=== PATIENT | female | born 1990 | race Caucasian/White ===

== ENCOUNTER 2022-06-26 14:25 | Emergency (ER) | payer OTHER, SELFPAY ==
[2022-06-26 14:38] VITALS: BP 139/82; PULSE 87; RESP 18; TEMP 36.6; O2SAT 97; BMI 34.5
[2022-06-26 15:01] LABS: Add Manual Diff / Slide Review NO; Basophils Absolute Auto 100 /uL (0-100); Basophils Percent Auto 0.8 % (0-2); Eosinophils Absolute Auto 100 /uL (0-450); Eosinophils Percent Auto 1.5 % (2-4); Hematocrit 39.4 % (36-46); Hemoglobin 14.1 g/dL (12.0-16.0); Lymphocytes Absolute Auto 1700 /uL (1100-4500); Lymphocytes Percent Auto 26.3 % (25-40); Mean Corpuscular HGB Conc 35.8 % (30-36); Mean Corpuscular Hemoglobin 31.2 PG (26-34); Mean Corpuscular Volume 87.1 fL (80-100); Monocytes Absolute Auto 400 /uL (0-900); Monocytes Percent Auto 5.7 % (3-14); Neutrophils Absolute Auto 4300 /uL (1500-7000); Neutrophils Percent Auto 65.7 % (50-75); Platelet Count 247 X10^3/uL (150-400); Red Blood Cell Count 4.52 X10^6/uL (4.0-5.2); Red Cell Distribution Width 12.3 % (11.6-14.8); White Blood Cell Count 6.5 X10^3/uL (4.5-11.0)
[2022-06-26 15:14] LABS: Alanine Aminotransferase 54 IU/L (<35); Albumin 4.5 g/dL (3.5-5.0); Albumin Globulin Ratio 1.2 (1.0-2.8); Alkaline Phosphatase 96 U/L (38-126); Aspartate Aminotransferase 33 IU/L (14-36); BUN Creatinine Ratio 15.6 (6-22); Bilirubin Total 0.8 mg/dL (0.2-1.3); Blood Urea Nitrogen 10 mg/dL (7-17); Calcium 9.2 mg/dL (8.4-10.2); Carbon Dioxide 27 mmol/L (22-32); Chloride 101 mmol/L (98-107); Estimated Glomerular Filt Rate > 60 mL/min (>60); Globulin 3.9 g/dL (1.7-4.1); Glucose 163 mg/dL (70-100); HEMOLYSIS < 15 (0-50); Lipase 77 U/L (23-300); Potassium 3.6 mmol/L (3.4-5.1); Sodium 136 mmol/L (137-145); Total Protein 8.4 g/dL (6.3-8.2)
--- NOTE | 2022-06-26 17:27 | DI.US.S_ITS ---
PROCEDURE: US ABDOMEN LIMITED INDICATIONS: PAIN TECHNIQUE: Real-time focused scanning was performed of the abdomen, with image documentation. COMPARISON: None. FINDINGS: Liver and gallbladder within normal limits. No biliary ductal dilatation. Visualized portions of the pancreas are within normal limits. IMPRESSION: No acute process. Dictated by: Heidi Marie M.D. on 06/26/2022 at 18:07 Approved by: Heidi Marie M.D. on 06/26/2022 at 18:08
[2022-06-26 18:41] VITALS: BP 122/76; PULSE 77; RESP 18; O2SAT 99
[2022-06-26 18:43] VITALS: PULSE 66; O2SAT 98
--- NOTE | 2022-06-26 18:52 | DI.CT.S_ITS ---
PROCEDURE: CT ABDOMEN PELVIS W CON INDICATIONS: RUQ pain TECHNIQUE: After the administration of intravenous contrast, axial sections acquired from the lung bases to the pubic symphysis. Coronal and sagittal reformats were performed. For radiation dose reduction, the following was used: automated exposure control, adjustment of mA and/or kV according to patient size. COMPARISON: None. FINDINGS: Image quality: Excellent. Lung bases: Unremarkable. Heart: No significant findings. ABDOMEN: Liver: Enlarged and demonstrates diffusely decreased density. Gallbladder: Within normal limits Biliary ducts: Unremarkable. Pancreas: Unremarkable. Spleen: Unremarkable. Adrenal Glands: Unremarkable. Kidneys and Ureters: Unremarkable. Stomach and Bowel: Stomach, small bowel loops, and colon are unremarkable. The tip of the appendix demonstrates mild surrounding fat stranding. Remainder of the appendix is within normal limits. Peritoneum: No abnormal intraperitoneal fluid. No free air. Ventral Wall: No hernias. Abdominal Nodes: No retroperitoneal or mesenteric adenopathy by size criteria. Vessels: Aorta and inferior vena cava are normal in size. PELVIS: Pelvic Organs: Unremarkable. Bladder: Unremarkable. Pelvic Nodes: No enlarged lymph nodes. Miscellaneous: No hernias are seen. Bones: Unremarkable. IMPRESSION: 1. Findings suggestive of evolving tip appendicitis. 2. Hepatic steatosis. Dictated by: Heidi Marie M.D. on 06/26/2022 at 19:10 Approved by: Heidi Marie M.D. on 06/26/2022 at 19:11
[2022-06-26 18:59] LABS: Appearance Urine UA CLEAR; Bilirubin Urine UA NEGATIVE (NEGATIVE); Color Urine UA YELLOW; Glucose Urine UA NEGATIVE (Negative); Ketones Urine UA NEGATIVE (NEGATIVE); Leukocyte Esterase Urine UA NEGATIVE (NEGATIVE); Nitrite Urine UA NEGATIVE (Negative); Occult Blood Urine UA TRACE-INTACT (Negative); Protein Urine UA NEGATIVE (Negative); Specific Gravity Urine UA 1.025 (1.000-1.035); Urobilinogen Urine UA 0.2 E.U./dL (0.2)
[2022-06-26 19:00] LABS: pH Urine UA 5.5 (4.5-8.0)
--- NOTE | 2022-06-26 19:04 | ED_ITS ---
HPI - Abdominal Pain <Ashley Jessica PA-C - Last Filed: 06/26/22 20:11> General Chief Complaint: Abdominal Pain Stated Complaint: poss galbladder rupture/nurse advice line said Time Seen by Provider: 06/26/22 14:52 Source: patient Mode of arrival: Wheelchair History of Present Illness HPI narrative: 32-year-old female with no reported past medical history presents to the ED with 1 week of right upper quadrant pain. Patient states that her pain started last week, was intermittent. Patient states that she woke up this morning with worsened right upper quadrant pain. Patient had 1 episode of vomiting earlier today. Patient denies fever, chills, chest pain, shortness of breath, dysuria, flank pain, lightheadedness, dizziness, syncope. Related Data Previous Rx's Medication Instructions Recorded ciprofloxacin HCl 500 mg tablet 500 mg PO BID 7 days #14 tabs 06/26/22 metronidazole 500 mg tablet 500 mg PO TID 7 days #21 tabs 06/26/22 Allergies Allergy/AdvReac Type Severity Reaction Status Date / Time Sulfa (Sulfonamide Allergy Intermediate Hives Verified 06/26/22 14:42 Antibiotics) Review of Systems <Ashley Jessica PA-C - Last Filed: 06/26/22 20:11> Review of Systems ROS Unobtainable: All systems reviewed & are unremarkable except as noted in HPI and below Constitutional Constitutional: Denies chills, Denies fatigue, Denies fever(s), Denies frequent falls, Denies lethargy and Denies weakness Eyes Eyes: Denies change in vision, Denies eye discharge, Denies irritation and Denies loss of vision ENT Ears, Nose, Mouth, and Throat: Denies change in voice, Denies dizziness, Denies neck pain, Denies sore throat and Denies throat swelling Cardiovascular Cardiovascular: Denies chest pain, Denies irregular heart rhythm, Denies lightheadedness, Denies palpitations, Denies dyspnea, Denies dyspnea on exertion and Denies orthopnea Respiratory Respiratory: Denies cough, Denies dyspnea, Denies dyspnea on exertion and Denies wheezing Gastrointestinal Gastrointestinal: Reports abdominal pain, Denies change in bowel habits, Denies diarrhea, Reports nausea and Reports vomiting Genitourinary Genitourinary: Denies hematuria, Denies flank pain, Denies urinary incontinence and Denies urinary urgency Musculoskeletal Musculoskeletal: Denies back pain, Denies muscle weakness, Denies neck pain, Denies numbness and Denies tingling Integumentary/Breasts Skin/Breast: Denies pruritus, Denies erythema, Denies rash and Denies wounds Neurologic Neurologic: Denies behavioral changes, Denies confusion, Denies dizziness, Denies frequent falls, Denies loss of vision, Denies numbness, Denies tingling and Denies weakness Psychiatric Psychiatric: Denies anxiety, Denies behavioral changes, Denies confusion, Denies depression, Denies homicidal ideation and Denies suicidal ideation Endocrine Endocrine: Denies fatigue, Denies flushing and Denies palpitations Hematologic/Lymphatic Hematologic/Lymphatic: Denies easy bruising Allergic/Immunologic Allergic/Immunologic: Denies urticaria, Denies throat swelling and Denies wheezing Patient History <Ashley Jessica PA-C - Last Filed: 06/26/22 20:11> Social History Smoking Status: Current some day smoker Smoking Status: Current some day smoker alcohol intake frequency: a few times a month Substance Use Type: does not use Exam <Ashley Jessica PA-C - Last Filed: 06/26/22 20:11> Narrative Exam Narrative: Const General:?cooperative, healthy appearing and comfortable [facility] Head:?normal to inspection Ears:?hearing grossly normal bilaterally Nose:?external nose normal Face and sinus:?normal facial exam and sinuses nontender Mouth:?oral mucosae normal Throat:?posterior oropharynx normal Eyes General:?appearance normal, both eyes and all related structures Neck Neck:?normal visual inspection and no lymphadenopathy noted Resp Effort & Inspection:?normal respiratory effort Auscultation:?clear to auscultation bilaterally Cardio Rate:?regular rate Rhythm:?regular rhythm GI Abdomen is soft, nondistended. Abdomen is exquisitely tender to palpation in the right upper quadrant. There is no CVA tenderness. Neuro General:?patient alert, patient awake and patient oriented x3 Initial Vital Signs Initial Vital Signs: Vital Signs Temperature 97.9 F 06/26/22 14:38 Pulse Rate 87 06/26/22 14:38 Respiratory Rate 18 06/26/22 14:38 Blood Pressure 139/82 06/26/22 14:38 Pulse Oximetry 97 06/26/22 14:38 Oxygen Delivery Method Room Air 05/08/23 14:38 <Jenelle Wick DO - Last Filed: 06/27/22 15:15> Initial Vital Signs Initial Vital Signs: Vital Signs Temperature 97.9 F 06/26/22 14:38 Pulse Rate 87 06/26/22 14:38 Respiratory Rate 18 06/26/22 14:38 Blood Pressure 139/82 06/26/22 14:38 Pulse Oximetry 97 06/26/22 14:38 Oxygen Delivery Method Room Air 06/26/22 14:38 Course <Ashley Jessica PA-C - Last Filed: 06/26/22 20:11> Orders Ordered: Discontinued Medications Ciprofloxacin (Ciprofloxacin 250 Mg Tablet) 500 mg PO NOW ONE Stop: 06/26/22 20:07 Last Admin: 06/26/22 20:10 Dose: 500 mg Documented By: JUVENAL Al Hydrox/Mg Hydrox/Simethicone 20 ml/ Lidocaine HCl 15 ml 0 ml PO NOW ONE Stop: 06/26/22 19:05 Last Admin: 06/26/22 19:14 Dose: 35 ml Documented By: JUVENAL Famotidine (Famotidine 20 Mg/2 Ml Vial) 20 mg IV NOW VICKI Last Admin: 06/26/22 19:17 Dose: 20 mg Documented By: JUVENAL Ketorolac Tromethamine (Ketorolac 30 Mg/Ml Vial) 15 mg IV NOW ONE Stop: 06/26/22 18:53 Last Admin: 06/26/22 19:16 Dose: 15 mg Documented By: JUVENAL Metronidazole (Metronidazole 500 Mg Tablet) 500 mg PO NOW ONE Stop: 06/26/22 20:07 Last Admin: 06/26/22 20:10 Dose: 500 mg Documented By: JUVENAL Ondansetron HCl (Ondansetron 4 Mg Odt) 4 mg PO NOW PRN PRN Reason: Nausea And Vomiting Ondansetron HCl (Ondansetron 4 Mg/2 Ml Inj) 4 mg IV NOW PRN PRN Reason: Nausea And Vomiting Vital Signs Vital signs: Vital Signs - 8 hr 06/26/22 14:38 06/26/22 18:41 06/26/22 18:43 Temperature 97.9 F Pulse Rate 87 77 66 Respiratory Rate 18 18 Blood Pressure 139/82 122/76 Pulse Oximetry 97 99 98 Oxygen Delivery Method Room Air Room Air 06/26/22 19:45 Temperature Pulse Rate Respiratory Rate 14 Blood Pressure Pulse Oximetry 98 Oxygen Delivery Method <Jenelle Wick DO - Last Filed: 06/27/22 15:15> Orders Ordered: Discontinued Medications Ciprofloxacin (Ciprofloxacin 250 Mg Tablet) 500 mg PO NOW ONE Stop: 06/26/22 20:07 Last Admin: 06/26/22 20:10 Dose: 500 mg Documented By: RL Al Hydrox/Mg Hydrox/Simethicone 20 ml/ Lidocaine HCl 15 ml 0 ml PO NOW ONE Stop: 06/26/22 19:05 Last Admin: 06/26/22 19:14 Dose: 35 ml Documented By: RL Famotidine (Famotidine 20 Mg/2 Ml Vial) 20 mg IV NOW VICKI Last Admin: 06/26/22 19:17 Dose: 20 mg Documented By: RL Ketorolac Tromethamine (Ketorolac 30 Mg/Ml Vial) 15 mg IV NOW ONE Stop: 06/26/22 18:53 Last Admin: 06/26/22 19:16 Dose: 15 mg Documented By: JUVENAL Metronidazole (Metronidazole 500 Mg Tablet) 500 mg PO NOW ONE Stop: 06/26/22 20:07 Last Admin: 06/26/22 20:10 Dose: 500 mg Documented By: JUVENAL Ondansetron HCl (Ondansetron 4 Mg Odt) 4 mg PO NOW PRN PRN Reason: Nausea And Vomiting Ondansetron HCl (Ondansetron 4 Mg/2 Ml Inj) 4 mg IV NOW PRN PRN Reason: Nausea And Vomiting Vital Signs Vital signs: Vital Signs - 8 hr 06/26/22 14:38 06/26/22 18:41 06/26/22 18:43 Temperature 97.9 F Pulse Rate 87 77 66 Respiratory Rate 18 18 Blood Pressure 139/82 122/76 Pulse Oximetry 97 99 98 Oxygen Delivery Method Room Air Room Air 06/26/22 19:45 Temperature Pulse Rate Respiratory Rate 14 Blood Pressure Pulse Oximetry 98 Oxygen Delivery Method MDM - Abdominal Pain <Ashley Jessica PA-C - Last Filed: 06/26/22 20:11> Lab Data 06/26/22 14:52 06/26/22 14:52 Labs: Lab Results 06/26/22 06/26/22 06/26/22 Range/Units 14:52 14:52 16:28 WBC 6.5 (4.5-11.0) X10^3/uL RBC 4.52 (4.0-5.2) X10^6/uL Hgb 14.1 (12.0-16.0) g/dL Hct 39.4 (36-46) % MCV 87.1 (80-100) fL MCH 31.2 (26-34) PG MCHC 35.8 (30-36) % RDW 12.3 (11.6-14.8) % Plt Count 247 (150-400) X10^3/uL Neut % (Auto) 65.7 (50-75) % Lymph % (Auto) 26.3 (25-40) % [place] % (Auto) 5.7 (3-14) % Eos % (Auto) 1.5 L (2-4) % Baso % (Auto) 0.8 (0-2) % Neut # (Auto) 4300 (9748-8098) /uL Lymph # (Auto) 1700 (4827-4593) /uL [place] # (Auto) 400 (0-900) /uL Eos # (Auto) 100 (0-450) /uL Baso # (Auto) 100 (0-100) /uL Sodium 136 L (137-145) mmol/L Potassium 3.6 (3.4-5.1) mmol/L Chloride 101 (98-107) mmol/L Carbon Dioxide 27 (22-32) mmol/L BUN 10 (7-17) mg/dL Creatinine 0.64 (0.52-1.04) mg/dL Estimated GFR > 60 (>60) mL/min BUN/Creatinine Ratio 15.6 (6-22) Glucose 163 H (70-100) mg/dL Calcium 9.2 (8.4-10.2) mg/dL Total Bilirubin 0.8 (0.2-1.3) mg/dL AST 33 (14-36) IU/L ALT 54 H (<35) IU/L Alkaline Phosphatase 96 (38-126) U/L Total Protein 8.4 H (6.3-8.2) g/dL Albumin 4.5 (3.5-5.0) g/dL Globulin 3.9 (1.7-4.1) g/dL Albumin/Globulin Ratio 1.2 (1.0-2.8) Lipase 77 (23-300) U/L Urine Color Yellow Urine Appearance Clear Urine pH 5.5 (4.5-8.0) Ur Specific Pilot 1.025 (1.000-1.035) Urine Protein Negative (Negative) Urine Glucose (UA) Negative (Negative) g/dL Urine Ketones Negative (NEGATIVE) Urine Occult Blood Trace-intact (Negative) Urine Nitrate Negative (Negative) Urine Bilirubin Negative (NEGATIVE) Urine Urobilinogen 0.2 (0.2) E.U./dL Ur Leukocyte Esterase Negative (NEGATIVE) Urine RBC 1-5/hpf (0-5/HPF) Urine WBC 0-1/hpf (0-5/HPF) Ur Squamous Epith Cells 10-30 /hpf H (0-5/HPF) Amorphous Sediment 1+ Urine Bacteria Occasional (0-1) (None) Ur Culture Indicated? Specimen cultured Point of care testing: Point of Care Testing Test Results Negative MDM Narrative Medical decision making narrative: 32-year-old female with no reported past medical history presents to the ED with 1 week of right upper quadrant pain. Concern for gallbladder disease versus pancreatitis versus PUD versus gastritis versus GERD versus other intra- abdominal pathology versus other. Will obtain labs, lipase, UA, urine hCG, ultrasound right upper quadrant. Labs, UA, urine hCG with no acute findings. Ultrasound RUQ without acute findings. Patient reassessed, abdomen is still very tender in the right upper quadrant, will obtain CT abdomen pelvis. CT abdomen pelvis shows evolving appendicitis of the tip of the appendix. Dr. Garcia from surgery was consulted, she advises discharge home with p.o. antibiotics. Discussed findings with patient. Patient agrees to return to the ED if her symptoms worsen. Antibiotics prescribed. First dose of antibiotics given in the ED. <Jenelle Wick, DO - Last Filed: 06/27/22 15:15> Lab Data Labs: Lab Results 06/26/22 06/26/22 06/26/22 Range/Units 14:52 14:52 16:28 WBC 6.5 (4.5-11.0) X10^3/uL RBC 4.52 (4.0-5.2) X10^6/uL Hgb 14.1 (12.0-16.0) g/dL Hct 39.4 (36-46) % MCV 87.1 (80-100) fL MCH 31.2 (26-34) PG MCHC 35.8 (30-36) % RDW 12.3 (11.6-14.8) % Plt Count 247 (150-400) X10^3/uL Neut % (Auto) 65.7 (50-75) % Lymph % (Auto) 26.3 (25-40) % [place] % (Auto) 5.7 (3-14) % Eos % (Auto) 1.5 L (2-4) % Baso % (Auto) 0.8 (0-2) % Neut # (Auto) 4300 (1831-0631) /uL Lymph # (Auto) 1700 (8412-8574) /uL [place] # (Auto) 400 (0-900) /uL Eos # (Auto) 100 (0-450) /uL Baso # (Auto) 100 (0-100) /uL Sodium 136 L (137-145) mmol/L Potassium 3.6 (3.4-5.1) mmol/L Chloride 101 (98-107) mmol/L Carbon Dioxide 27 (22-32) mmol/L BUN 10 (7-17) mg/dL Creatinine 0.64 (0.52-1.04) mg/dL Estimated GFR > 60 (>60) mL/min BUN/Creatinine Ratio 15.6 (6-22) Glucose 163 H (70-100) mg/dL Calcium 9.2 (8.4-10.2) mg/dL Total Bilirubin 0.8 (0.2-1.3) mg/dL AST 33 (14-36) IU/L ALT 54 H (<35) IU/L Alkaline Phosphatase 96 (38-126) U/L Total Protein 8.4 H (6.3-8.2) g/dL Albumin 4.5 (3.5-5.0) g/dL Globulin 3.9 (1.7-4.1) g/dL Albumin/Globulin Ratio 1.2 (1.0-2.8) Lipase 77 (23-300) U/L Urine Color Yellow Urine Appearance Clear Urine pH 5.5 (4.5-8.0) Ur Specific [place] 1.025 (1.000-1.035) Urine Protein Negative (Negative) Urine Glucose (UA) Negative (Negative) g/dL Urine Ketones Negative (NEGATIVE) Urine Occult Blood Trace-intact (Negative) Urine Nitrate Negative (Negative) Urine Bilirubin Negative (NEGATIVE) Urine Urobilinogen 0.2 (0.2) E.U./dL Ur Leukocyte Esterase Negative (NEGATIVE) Urine RBC 1-5/hpf (0-5/HPF) Urine WBC 0-1/hpf (0-5/HPF) Ur Squamous Epith Cells 10-30 /hpf H (0-5/HPF) Amorphous Sediment 1+ Urine Bacteria Occasional (0-1) (None) Ur Culture Indicated? Specimen cultured Point of care testing: Point of Care Testing Test Results Negative Discharge Plan Departure Patient Disposition: Home Clinical Impression: Acute appendicitis Instructions: DI for Appendicitis -- Adult Activity Restrictions/Additional Instructions: You were evaluated in the ED today for abdominal pain. Your labs, urine, ultrasound were normal. Your CT abdomen pelvis did show developing appendicitis. Dr. Garcia from surgery was consulted, she recommends discharge home with oral antibiotics. Please monitor your symptoms and return to the ED if your symptoms worsen, you develop fevers and chills, you are persistently vomiting. Please follow-up with your PCP as soon as possible. Prescriptions: New ciprofloxacin HCl 500 mg tablet 500 mg PO BID 7 Days Qty: 14 0RF metronidazole 500 mg tablet 500 mg PO TID 7 Days Qty: 21 0RF Referrals: Raheel Muñiz DC [Primary Care Provider] - Stand Alone Forms: Patient Portal/API <Jenelle Wick DO - Last Filed: 06/27/22 15:15> Cosign ED Attending Cosignature Attestation: I was immediately available in the department for consultation. Documentation has been reviewed.
[2022-06-26 19:06] LABS: RBC Urine 1-5/HPF (0-5/HPF); WBC Urine 0-1/HPF (0-5/HPF)
[2022-06-26 19:07] LABS: Amorphous Sediment Urine 1+; Bacteria Urine Occasional (0-1); Culture Indicated Urine Specimen Cultured; Squamous Epithelial Cell Urine 10-30 /HPF (0-5/HPF)
[2022-06-26] MEDS: MAG HYDROX/ALUMINUM/SIMETH SUS 20 ML, LIDOCAINE VISCOUS 2% 15 ML PO (19:14)
[2022-06-26] MEDS: KETOROLAC 30 MG/ML VIAL 15 MG IV (19:16)
[2022-06-26] MEDS: FAMOTIDINE 20 MG/2 ML VIAL IV (19:17)
[2022-06-26 19:45] VITALS: RESP 14; O2SAT 98
[2022-06-26] MEDS: metroNIDAZOLE 500 MG TABLET PO (20:10)
[2022-06-26] MEDS: CIPROFLOXACIN 250 MG TABLET 500 MG PO (20:10)
[2022-06-26 20:32] VITALS: BP 137/86; PULSE 68; RESP 18; O2SAT 99
== END 2022-06-26 20:32 | disposition home or self-care (01) ==
PROVIDERS: Emergency Medicine; Emergency Provider Student in an Organized Health Care Education/Training Program
DX: K35.80 Unspecified acute appendicitis (principal); R11.2 Nausea with vomiting, unspecified
CPT/HCPCS: 36415; 74177; 76705; 80053; 81001; 81025; 83690; 85025; 87086; 96374; 96375; 99284; J1885; Q9967

== ENCOUNTER 2023-12-31 16:48 | Emergency (ER) | payer OTHER, SELFPAY ==
[2023-12-31] VITALS (8 sets, daily range): BP systolic 141–169; BP diastolic 90–114; PULSE 77–96; RESP 12–23; TEMP 36.1; O2SAT 92–99; BMI 36.6
--- NOTE | 2023-12-31 17:00 | DI.RAD.S_ITS ---
PROCEDURE: XR CHEST 1V INDICATIONS: chest pain TECHNIQUE: One view of the chest was acquired. COMPARISON: None. FINDINGS: Surgical changes and devices: None. Lungs and pleura: Lungs are clear. No pleural effusions or pneumothorax. Mediastinum: Mediastinal contours appear normal. Heart size is normal. Bones and chest wall: No suspicious bony lesions. Overlying soft tissues appear unremarkable. IMPRESSION: No acute cardiopulmonary abnormality is seen. Dictated by: Quentin Mar M.D. on 12/31/2023 at 18:01 Approved by: Quentin Mar M.D. on 12/31/2023 at 18:01
--- NOTE | 2023-12-31 17:13 | EKG_ITS ---
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
[2023-12-31 17:25] LABS: Add Manual Diff / Slide Review NO; Basophils Absolute Auto 100 /uL (0-100); Eosinophils Absolute Auto 300 /uL (0-450); Eosinophils Percent Auto 3.4 % (2-4); Hematocrit 40.1 % (36-46); Lymphocytes Absolute Auto 2700 /uL (1100-4500); Mean Corpuscular HGB Conc 34.9 % (30-36); Mean Corpuscular Hemoglobin 30.2 PG (26-34); Mean Corpuscular Volume 86.5 fL (80-100); Monocytes Absolute Auto 400 /uL (0-900); Monocytes Percent Auto 5.1 % (3-14); Neutrophils Absolute Auto 4200 /uL (1500-7000); Neutrophils Percent Auto 54.5 % (50-75); Platelet Count 277 X10^3/uL (150-400); Red Blood Cell Count 4.64 X10^6/uL (4.0-5.2); Red Cell Distribution Width 12.9 % (11.6-14.8); White Blood Cell Count 7.6 X10^3/uL (4.5-11.0)
[2023-12-31 17:31] LABS: Prothrombin Time 11.3 SECONDS (9.4-12.5)
[2023-12-31 17:34] LABS: PTT Partial Thromboplastin Tim 22 SECONDS (25.1-36.5)
[2023-12-31 17:35] LABS: Alanine Aminotransferase 56 IU/L (<35); Albumin 4.4 g/dL (3.5-5.0); Albumin Globulin Ratio 1.1 (1.0-2.8); Alkaline Phosphatase 103 U/L (38-126); Aspartate Aminotransferase 35 IU/L (14-36); BUN Creatinine Ratio 12.1 (6-22); Bilirubin Total 0.6 mg/dL (0.2-1.3); Blood Urea Nitrogen 8 mg/dL (7-17); Calcium 9.4 mg/dL (8.4-10.2); Carbon Dioxide 26 mmol/L (22-32); Chloride 102 mmol/L (98-107); Creatine Kinase 54 U/L (30-135); Estimated Glomerular Filt Rate > 60 mL/min (>60); Globulin 3.9 g/dL (1.7-4.1); Glucose 225 mg/dL (70-100); Lipase 98 U/L (23-300); Magnesium 1.5 mg/dL (1.6-2.3); Potassium 3.7 mmol/L (3.4-5.1); Sodium 136 mmol/L (137-145); Total Protein 8.3 g/dL (6.3-8.2)
[2023-12-31 17:45] LABS: HEMOLYSIS 43 (0-50); NT-proBNP (BNP-Adult 18+) 48 pg/mL (<125)
[2023-12-31 17:47] LABS: Troponin I < 0.012 ng/mL (0.01-0.034)
--- NOTE | 2023-12-31 18:09 | ED_ITS ---
HPI - Chest Pain General Chief Complaint: Chest Pain Stated Complaint: lightheaded, vaginal bleeding with clots, chest px Time Seen by Provider: 12/31/23 18:09 History of Present Illness HPI narrative: Patient is a 31-year-old female no significant past medical history presents to the ED for evaluation multiple complaints. She states that she is currently on her menstrual cycle is having normal menstrual pain but did have a large amount of bleeding/blood clot prior to arrival. States that this did cause her to feel lightheaded dizzy short of breath. This is she has a history of anemia requiring iron supplementation. She states that since then she has been having some chest tightness pleuritic chest pain. She denies any blood thinners, she denies any other symptoms at this time. Related Data Allergies Allergy/AdvReac Type Severity Reaction Status Date / Time Sulfa (Sulfonamide Allergy Intermediate Hives Verified 06/26/22 14:42 Antibiotics) Review of Systems Review of Systems Narrative: General: Denies fever, chills, weight loss HEENT: Denies headache, eye drainage, eye irritation, head trauma, sore throat, voice change Cardiovascular: Positive shortness of breath, chest tightness Respiratory: Denies any shortness of breath, cough, wheeze, stridor GI/: Positive pelvic cramping, nausea, vomiting, diarrhea, bright red blood per rectum, melanotic stools, urinary frequency, urinary retention, dysuria, hematuria MSK: Denies any joint pain, muscle pains, swelling Skin: Denies any rashes, lesions, discoloration Neuro: Denies any headache, lightheadedness, dizziness, fainting, weakness Psych: Denies SI/HI Patient History Social History Smoking Status: Current some day smoker Smoking Status: Current some day smoker alcohol intake frequency: a few times a month Substance Use Type: does not use Exam Narrative Exam Narrative: General: Cooperative, comfortable, well-developed, not in acute distress HEENT: Normocephalic, atraumatic, PERRLA, normal sclera, eyelids normal, Neck: Active full range of motion, atraumatic Chest: Normal to inspection, negative crepitus, no overlying erythema ecchymosis Respiratory: Normal respiratory effort, not in acute respiratory distress, clear to auscultation bilaterally negative cough, wheeze, tachypnea, rhonchi, rales Cardiology: Regular rate rhythm negative gallop, murmur, rubs GI/: Normal to inspection, soft, nonrigid, no tenderness to palpation, exam deferred MSK: Full range of active range of motion of all 4 extremities, atraumatic Skin: No rashes lesions noted Neuro: Alert awake oriented x3, moves all 4 extremities spontaneously, cranial nerves intact, able to answer all questions appropriately follows commands appropriately Psych: Cooperative, negative suicidal or homicidal ideations Initial Vital Signs Initial Vital Signs: Vital Signs Temperature 97.0 F L 12/31/23 16:52 Pulse Rate 91 H 12/31/23 16:52 Respiratory Rate 19 12/31/23 16:52 Blood Pressure 141/99 H 12/31/23 16:52 Pulse Oximetry 99 12/31/23 16:52 Oxygen Delivery Method Room Air 12/31/23 16:52 Course Orders Ordered: ED Orders 12/31/23 17:00 XR chest 1V Stat EKG-12 Lead Stat 12/31/23 17:15 Complete Blood Count AUTO DIFF Stat Comprehensive Metabolic Panel Stat Lipase Stat Magnesium Stat NT-proBNP (BNP-Adult 18+) Stat PTT Partial Thromboplastin Valdemar Stat Prothrombin Time INR Stat Troponin & CK Cardiac Panel Stat 12/31/23 18:06 Ictotest Urine Stat Urinalysis and Microscopic Stat 12/31/23 18:21 CT angio chest PE protocol Stat 12/31/23 18:29 US pelvic complete Stat 12/31/23 18:32 Test Urine Stat Ondansetron HCl (Ondansetron 4 Mg/2 Ml Inj) 4 mg IV NOW PRN PRN Reason: Nausea And Vomiting Ondansetron HCl (Ondansetron 4 Mg Odt) 4 mg SL NOW PRN PRN Reason: Nausea And Vomiting Discontinued Medications Ketorolac Tromethamine (Ketorolac 30 Mg/Ml Vial) 15 mg IV NOW ONE Stop: 12/31/23 18:20 Last Admin: 12/31/23 18:42 Dose: 15 mg Documented By: NEO Vital Signs Vital signs: Vital Signs - 8 hr 12/31/23 16:52 Temperature 97.0 F L Pulse Rate 91 H Respiratory Rate 19 Blood Pressure 141/99 H Pulse Oximetry 99 Oxygen Delivery Method Room Air MDM - Chest Pain Differential Diagnosis Differential diagnosis: Likely st elevation myocardial infarction, chest pain and other ( Electrolyte abnormality, PE, adenomyosis) Lab Data 12/31/23 17:15 12/31/23 17:15 Labs: Lab Results 12/31/23 12/31/23 12/31/23 Range/Units 17:15 18:06 18:32 WBC 7.6 (4.5-11.0) X10^3/uL RBC 4.64 (4.0-5.2) X10^6/uL Hgb 14.0 (12.0-16.0) g/dL Hct 40.1 (36-46) % MCV 86.5 (80-100) fL MCH 30.2 (26-34) PG MCHC 34.9 (30-36) % RDW 12.9 (11.6-14.8) % Plt Count 277 (150-400) X10^3/uL Neut % (Auto) 54.5 (50-75) % Lymph % (Auto) 36.0 (25-40) % [place] % (Auto) 5.1 (3-14) % Eos % (Auto) 3.4 (2-4) % Baso % (Auto) 1.0 (0-2) % Neut # (Auto) 4200 (5588-3178) /uL Lymph # (Auto) 2700 (3202-1323) /uL [place] # (Auto) 400 (0-900) /uL Eos # (Auto) 300 (0-450) /uL Baso # (Auto) 100 (0-100) /uL PT 11.3 (9.4-12.5) SECONDS INR 1.0 (0.9-1.3) APTT 22 L (25.1-36.5) SECONDS Sodium 136 L (137-145) mmol/L Potassium 3.7 (3.4-5.1) mmol/L Chloride 102 (98-107) mmol/L Carbon Dioxide 26 (22-32) mmol/L BUN 8 (7-17) mg/dL Creatinine 0.66 (0.52-1.04) mg/dL Estimated GFR > 60 (>60) mL/min BUN/Creatinine Ratio 12.1 (6-22) Glucose 225 H (70-100) mg/dL Calcium 9.4 (8.4-10.2) mg/dL Magnesium 1.5 L (1.6-2.3) mg/dL Total Bilirubin 0.6 (0.2-1.3) mg/dL AST 35 (14-36) IU/L ALT 56 H (<35) IU/L Alkaline Phosphatase 103 (38-126) U/L Total Creatine Kinase 54 (30-135) U/L Troponin I < 0.012 (0.01-0.034) ng/mL NT-Pro-B Natriuret Pep 48 (<125) pg/mL Total Protein 8.3 H (6.3-8.2) g/dL Albumin 4.4 (3.5-5.0) g/dL Globulin 3.9 (1.7-4.1) g/dL Albumin/Globulin Ratio 1.1 (1.0-2.8) Lipase 98 (23-300) U/L Urine Color [place] Urine Appearance Cloudy Urine pH 5.0 (4.5-8.0) Ur Specific [place] >=1.030 H (1.000-1.035) Urine Protein 2+ H (Negative) Urine Glucose (UA) Trace H (Negative) g/dL Urine Ketones Trace H (NEGATIVE) Urine Occult Blood 3+ H (Negative) Urine Nitrate Negative (Negative) Urine Bilirubin 1+ H (NEGATIVE) Ur Bilirubin Confirm Negative (Negative) Urine Urobilinogen 1.0 (0.2) E.U./dL Ur Leukocyte Esterase Negative (NEGATIVE) Urine RBC >100/hpf H (0-5/HPF) Urine WBC 0-1/hpf (0-5/HPF) Ur Squamous Epith Cells 1-5 /hpf D (0-5/HPF) Urine Bacteria Occasional (0-1) (None) Urine Mucus 1+ H (Negative) Ur Culture Indicated? Cult not indicated Vol Urine Centrifuged 10ml (spun) Urine Test Negative (Negative) Imaging Data Chest x-ray: Radiologist's Impression: [address] [address] XRay Report Signed Patient: Nasima Herman MR#: [id number] : 1990 Acct:[id number] Age/Sex: 33 / F Date of Service: 12/31/23 Loc: ED Accession Number: [id number] Procedure: XR chest 1V Ordering Provider: Kiya Elias MD PROCEDURE: XR CHEST 1V INDICATIONS: chest pain TECHNIQUE: One view of the chest was acquired. COMPARISON: None. FINDINGS: Surgical changes and devices: None. Lungs and pleura: Lungs are clear. No pleural effusions or pneumothorax. Mediastinum: Mediastinal contours appear normal. Heart size is normal. Bones and chest wall: No suspicious bony lesions. Overlying soft tissues appear unremarkable. IMPRESSION: No acute cardiopulmonary abnormality is seen. CT scan - chest: Radiologist's Impression: [address] [address] [address] Scan Report Signed Patient: Nasima Herman MR#: [id number] : 1990 Acct:[id number] Age/Sex: 33 / F Date of Service: 12/31/23 Loc: ED Accession Number: [id number] Procedure: CT angio chest PE protocol Ordering Provider: Porter Monreal D.O. PROCEDURE: CT ANGIO CHEST PE PROTOCOL INDICATIONS: sob, chest pain TECHNIQUE: After the administration of intravenous contrast, 2 mm thick sections acquired from the pulmonary apices to the posterior costophrenic angles. 3-dimensional maximum intensity projection (MIP) coronal and sagittal reformats were then acquired through the thorax. For radiation dose reduction, the following was used: automated exposure control, adjustment of mA and/or kV according to patient size. COMPARISON: [facility], CT, CT ABDOMEN PELVIS W CON, 06/26/2022, 18:59. [facility], CR, XR CHEST 1V, 12/31/2023, 17:32. FINDINGS: Image quality: Diagnostic. Pulmonary arteries: Pulmonary arteries are normal in size, and demonstrate no intraluminal filling defects to suggest central pulmonary embolism. Lower Neck: No enlarged lymph nodes. Thyroid: No thyroid nodules which require sonographic follow up, per consensus guidelines. Axillae: No enlarged lymph nodes. Chest Wall: 1.3 cm right soft tissue breast mass on series 5, image 67. It is unchanged compared to 2022. Bones: Unremarkable. Lungs and Pleura: No pneumothorax or pleural effusions. No consolidation or suspicious nodules. Heart: Heart size is normal. No pericardial effusion. Thoracic Vessels: No aortic aneurysm. Mediastinum and Romi: No enlarged lymph nodes. Esophagus: No wall thickening. No hiatal hernia. Upper Abdomen: Visualized upper abdomen solid organs and bowel loops appear normal. IMPRESSION: No pulmonary embolus. No acute cardiopulmonary process. Unchanged soft tissue density in the right breast. It is indeterminate on the basis of this exam. As clinically indicated, further evaluation with mammogram is recommended. 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 PROCEDURE: US PELVIC COMPLETE INDICATIONS: pelvic pain TECHNIQUE: Real-time scanning was performed of the pelvic organs, with image documentation. Additional endovaginal scanning was necessary due to incomplete visualization of the adnexal and endometrial structures by transabdominal scanning. COMPARISON: None. FINDINGS: Uterus: Uterus is anteverted and normal in size at 7.7 x 4.0 x 5.0 cm. The myometrium is homogeneous. The endometrium measures 6 mm combined thickness. There is a globular appearance of the uterus Ovaries: The right ovary measures 3.3 x 2.0 x 1.9 cm, with a calculated ovarian volume of 6.7 cc. The left ovary measures 3.5 x 1.8 x 1.7 cm, with a calculated ovarian volume of 5.6 cc. The ovaries have a normal sonographic appearance. Less than 12 follicles can be seen in each ovary. No adnexal masses are seen. Other: No pathologic free abdominal or pelvic fluid. IMPRESSION: 1. Globular appearance of the uterus, which can be seen in the setting of adenomyosis. If clinically indicated, consider gynecologic referral for further evaluation. 2. No sonographic evidence of ovarian torsion. ECG Data Interpretation: EKG interpreted ED physician, sinus at 79 beats per minute QTC 449, normal axis, nonspecific ST changes, no STEMI MDM Narrative Medical decision making narrative: Patient is a 31-year-old female no significant past medical history presents to the ED for evaluation multiple complaints. She states that she is currently on her menstrual cycle is having normal menstrual pain but did have a large amount of bleeding/blood clot prior to arrival. States that this did cause her to feel lightheaded dizzy short of breath. This is she has a history of anemia requiring iron supplementation. She states that since then she has been having some chest tightness pleuritic chest pain. patient's lab work unremarkable EKG nonischemic, troponin negative, urinalysis not consistent with urinary tract infection, patient is currently on her menstruation therefore accounting for her hematuria. CTA negative for PE, patient not anemic, patient ultrasound did show adenomyosis which would explain her excessive amount of pain and bleeding, I informed patient of this and told her to follow up with her OBGYN she verbalized understanding of this informed her to follow up with Cardiology safe for discharge home with outpatient follow up Discharge Plan Departure Patient Disposition: Home Clinical Impression: Chest pain, Adenomyosis Activity Restrictions/Additional Instructions: please follow up with OBGYN and Cardiology Please read the discharge instructions sheet carefully and bring all papers to all doctor follow-up visits, as it may contain information that your doctor may want to see. Disease processes change and evolve, if your symptoms worsen or if you develop any new symptoms that are concerning to you please return for evaluation. Your evaluation today does not show any evidence of any life- threatening/serious illnesses requiring admission to the hospital or surgery. Please follow-up with your doctor for re-evaluation in approximately 1 day. Seek immediate medical attention for any worrisome symptoms. Referrals: Raheel Muñiz DC [Primary Care Provider] - Stand Alone Forms: Patient Portal/API/Survey
--- NOTE | 2023-12-31 18:21 | DI.CT.S_ITS ---
PROCEDURE: CT ANGIO CHEST PE PROTOCOL INDICATIONS: sob, chest pain TECHNIQUE: After the administration of intravenous contrast, 2 mm thick sections acquired from the pulmonary apices to the posterior costophrenic angles. 3-dimensional maximum intensity projection (MIP) coronal and sagittal reformats were then acquired through the thorax. For radiation dose reduction, the following was used: automated exposure control, adjustment of mA and/or kV according to patient size. COMPARISON: [facility], CT, CT ABDOMEN PELVIS W CON, 06/26/2022, 18:59. [facility], CR, XR CHEST 1V, 12/31/2023, 17:32. FINDINGS: Image quality: Diagnostic. Pulmonary arteries: Pulmonary arteries are normal in size, and demonstrate no intraluminal filling defects to suggest central pulmonary embolism. Lower Neck: No enlarged lymph nodes. Thyroid: No thyroid nodules which require sonographic follow up, per consensus guidelines. Axillae: No enlarged lymph nodes. Chest Wall: 1.3 cm right soft tissue breast mass on series 5, image 67. It is unchanged compared to 2022. Bones: Unremarkable. Lungs and Pleura: No pneumothorax or pleural effusions. No consolidation or suspicious nodules. Heart: Heart size is normal. No pericardial effusion. Thoracic Vessels: No aortic aneurysm. Mediastinum and Romi: No enlarged lymph nodes. Esophagus: No wall thickening. No hiatal hernia. Upper Abdomen: Visualized upper abdomen solid organs and bowel loops appear normal. IMPRESSION: No pulmonary embolus. No acute cardiopulmonary process. Unchanged soft tissue density in the right breast. It is indeterminate on the basis of this exam. As clinically indicated, further evaluation with mammogram is recommended. Dictated by: Damaris Quinonez M.D. on 12/31/2023 at 18:51 Approved by: Damaris Quinonez M.D. on 12/31/2023 at 18:54
--- NOTE | 2023-12-31 18:24 | PC.NURSE ---
Pt reports on menstrual cycle day 2 and passed a large, golf-ball sized clot, then afterward having sharp chest pain that worsens with inspiration. She is SOB while walking back from bathroom. Current respirations are WNL at 14. Hx of anemia and mitral valve regurgitation.
--- NOTE | 2023-12-31 18:29 | DI.US.S_ITS ---
PROCEDURE: US PELVIC COMPLETE INDICATIONS: pelvic pain TECHNIQUE: Real-time scanning was performed of the pelvic organs, with image documentation. Additional endovaginal scanning was necessary due to incomplete visualization of the adnexal and endometrial structures by transabdominal scanning. COMPARISON: None. FINDINGS: Uterus: Uterus is anteverted and normal in size at 7.7 x 4.0 x 5.0 cm. The myometrium is homogeneous. The endometrium measures 6 mm combined thickness. There is a globular appearance of the uterus Ovaries: The right ovary measures 3.3 x 2.0 x 1.9 cm, with a calculated ovarian volume of 6.7 cc. The left ovary measures 3.5 x 1.8 x 1.7 cm, with a calculated ovarian volume of 5.6 cc. The ovaries have a normal sonographic appearance. Less than 12 follicles can be seen in each ovary. No adnexal masses are seen. Other: No pathologic free abdominal or pelvic fluid. IMPRESSION: 1. Globular appearance of the uterus, which can be seen in the setting of adenomyosis. If clinically indicated, consider gynecologic referral for further evaluation. 2. No sonographic evidence of ovarian torsion. We strive to produce accurate, complete, and clear reports of imaging services. To assist us in improving patient care, this report was composed using standard report templates and voice recognition software. Therefore, it may contain abnormal punctuation, insertions and/or omissions. Occasional wrong-word or sound-alike substitutions may occur. Though we review the report and make efforts to correct it, we do recommend that the report be read carefully in proper context to recognize any text inaccuracies. Dictated by: Quentin Mar M.D. on 12/31/2023 at 19:14 Approved by: Quentin Mar M.D. on 12/31/2023 at 19:17
[2023-12-31 18:41] LABS: Appearance Urine UA CLOUDY; Bilirubin Urine UA 1+ (NEGATIVE); Color Urine UA ORANGE; Glucose Urine UA TRACE g/dL (Negative); Ketones Urine UA TRACE (NEGATIVE); Leukocyte Esterase Urine UA NEGATIVE (NEGATIVE); Nitrite Urine UA NEGATIVE (Negative); Occult Blood Urine UA 3+ (Negative); Protein Urine UA 2+ (Negative); Specific Gravity Urine UA >=1.030 (1.000-1.035)
[2023-12-31] MEDS: KETOROLAC 30 MG/ML VIAL 15 MG IV (18:42)
[2023-12-31 18:50] LABS: Pregnancy Test Urine Negative (Negative)
[2023-12-31 18:53] LABS: Bacteria Urine Occasional (0-1); Ictotest Urine Negative (Negative); RBC Urine >100/HPF (0-5/HPF); Squamous Epithelial Cell Urine 1-5 /HPF (0-5/HPF); Urine Volume 10mL (spun); WBC Urine 0-1/HPF (0-5/HPF)
[2023-12-31 18:54] LABS: Culture Indicated Urine Cult Not Indicated; Mucus Urine 1+ (Negative)
== END 2023-12-31 20:11 | disposition home or self-care (01) ==
PROVIDERS: Emergency Medicine; Emergency Provider Student in an Organized Health Care Education/Training Program
DX: R07.9 Chest pain, unspecified (principal); N80.03 Adenomyosis of the uterus; R06.02 Shortness of breath; R10.2 Pelvic and perineal pain
CPT/HCPCS: 36415; 71045; 71275; 76856; 80053; 81001; 81025; 82550; 83690; 83735; 83880; 84484; 85025; 85610; 85730; 93005; 93010; 96374; 99284; J1885; Q9967